=== PATIENT | male | born 1990 | race Caucasian/White ===

== ENCOUNTER 2016-06-08 14:03 | Emergency (ER) | payer SELFPAY ==
[2016-06-08] MEDS ORDERED: FAMOTIDINE 20 MG/50 ML IVPB 50 ML IVPB ONE ×2 (14:10→14:16)
[2016-06-08] MEDS ORDERED: methylPREDNISolone NA SUCC 125 MG/2 ML VIAL IVPB ONE (14:10)
[2016-06-08 14:11] VITALS: BP 111/72; PULSE 98; TEMP 99.1; BMI 25.8
--- NOTE | 2016-06-08 14:14 | PDOC ---
History of Present Illness - General Chief Complaint: Rash Stated Complaint: RASH Time Seen by Provider: 06/08/16 14:04 History Source: Patient Exam Limitations: No Limitations - History of Present Illness Initial Comments: 06/08/16 14:11 25 y/o male with rash over entire body since yesterday, itching. No SOB or chest pain. Denies new products. Took Benadryl last night but no better. No fever or chills. No joint pain. Severity: Yes: mild Past History - Past Medical History Allergies/Adverse Reactions: Allergies Allergy/AdvReac Type Severity Reaction Status Date / Time No Known Allergies Allergy Verified 06/08/16 14:03 Home Medications: Ambulatory Orders Prednisone [Deltasone] 20 mg PO BID #6 tablet 06/08/16 Other medical history: PT DENIES - Psycho/Social/Smoking Cessation Hx Anxiety: No Suicidal Ideation: No Smoking History: Never smoked Information on smoking cessation initiated: No Hx Alcohol Use: No Drug/Substance Use Hx: No Substance Use Type: None Review of Systems - Review of Systems Able to Perform ROS?: Yes Is the patient limited Yi proficient: No Constitutional: No: Chills, Fever Respiratory: No: Cough, Shortness of Breath Cardiac (ROS): No: Chest Pain, Palpitations ABD/GI: No: Nausea, Vomiting Musculoskeletal: No: Joint Pain Integumentary: Yes: Pruritus, Rash All Other Systems: Reviewed and Negative *Physical Exam - Vital Signs Last Vital Signs Temp Pulse Resp BP Pulse Ox 99.1 F 98 H 18 111/72 100 06/08/16 14:03 06/08/16 14:03 06/08/16 14:03 06/08/16 14:03 06/08/16 14:03 - Physical Exam General Appearance: Yes: Nourished, Appropriately Dressed. No: Apparent Distress HEENT: positive: EOMI, NUSRAT, Normal ENT Inspection, Pharynx Normal Neck: positive: Trachea midline, Normal Thyroid, Supple Respiratory/Chest: positive: Lungs Clear, Normal Breath Sounds. negative: Respiratory Distress Cardiovascular: positive: Regular Rhythm, Regular Rate, S1, S2. negative: Edema , JVD Vascular Pulses: Femoral (R): 4+, Femoral (L): 4+, Carotid (R): 4+, Carotid (L) : 4+, Dorsalis-Pedis (R): 4+, Doralis-Pedis (L): 4+ Gastrointestinal/Abdominal: positive: Normal Bowel Sounds, Flat, Soft. negative : Organomegaly Lymphatic: negative: Adenopathy, Tenderness, Other Musculoskeletal: positive: Normal Inspection. negative: CVA Tenderness Extremity: positive: Normal Capillary Refill, Normal Inspection, Normal Range of Motion Integumentary: positive: Normal Color, Dry, Warm, Hives (difuse urticarial rash over entire body) Neurologic: positive: needle leader II-XII NML intact, Fully Oriented, Alert, Normal Mood/ Affect, Normal Response, Motor Strength 5/5 Progress Note - Progress Note Progress Note: Pt with urticarial rash over entire body. Will treat with IV Solumdrol, Pepcid and Benadryl Will monitor Pt is feeling much better after treatment, rash is subsiding Will discharge pt on Benadryl and Prednisone If worsen return to ER Pt is in agreement with plan *DC/Admit/Observation/Transfer Diagnosis at time of Disposition: Urticaria - Discharge Dispostion Disposition: HOME Condition at time of disposition: Stable Admit: No - Patient Instructions Printed Discharge Instructions: DI for Hives Additional Instructions: Fluids, rest, Tylenol Benadryl 25 mg every 6 hr as needed Prednisone 20 mg 2x/day for 3 days If worsen return to ER
[2016-06-08] MEDS ORDERED: methylPREDNISolone NA SUCC 125 MG/2 ML VIAL ONE (14:16)
== END 2016-06-08 15:25 | disposition home or self-care (01) ==
LOC: FER 14:03
PROC: 3E033GC Introduction of Other Therapeutic Substance into Peripheral Vein, Percutaneous Approach (ICD-10-PCS; principal; 2016-06-08)
DX: L50.9 Urticaria, unspecified (principal)
CPT/HCPCS: 99282-25